=== PATIENT | female | born 1995 | race Caucasian/White ===

== ENCOUNTER 2017-05-05 22:10 | Outpatient (CLI) | payer MEDICAID, SELFPAY ==
[2017-05-05 22:35] VITALS: BMI 24.4
[2017-05-05 23:30] VITALS: RESP 18
--- NOTE | 2017-07-19 08:53 | OB.TRI.NOTE ---
History of Present Illness Reason For Visit: threatened PTL Home Medications Medication Instructions Recorded Vits [Prenatabs FA] 1 tablet PO DAILY 03/12/17 Ascorbic Acid [Vitamin C] 500 mg PO DAILY@0800 05/05/17 Cephalexin [Keflex] 500 mg PO BID #14 cap 06/14/17 Phenazopyridine HCl [Pyridium] 200 mg PO BID PRN PRN #6 tab 06/14/17 Allergies No Known Allergies Allergy (Verified 06/14/17 15:30) Physical Exam Vitals: Vital Signs Resp 18 05/05/17 23:30 Impression/Plan threatened PTL
== END 2017-05-05 23:30 | disposition home or self-care (01) ==
PROVIDERS: Visit Provider Obstetrics & Gynecology
DX: O60.00 Preterm labor without delivery, unspecified trimester (principal); Z3A.00 Weeks of gestation of pregnancy not specified
CPT/HCPCS: 59025; 59050; 99218; G0378

== ENCOUNTER 2017-05-07 00:30 | Outpatient (CLI) | payer MEDICAID, SELFPAY ==
[2017-05-07 00:50] VITALS: BMI 24.7
[2017-05-07 01:08] LABS: Bacteria 0 SEEN /hpf (None Seen); Mucous, Urine 0 SEEN /hpf (<or=2+); Red Blood Cells-Urine 0 SEEN /hpf (0-5)
[2017-05-07 01:23] LABS: Color, Urine Straw (Yellow); Glucose, Dipstick Normal (Normal); Ketone-Dipstick Negative (Negative); Leukocyte Esterase-Dipstick 25 /ul (Negative); Nitrite-Dipstick Negative (Negative); Occult Blood-Urine Negative /ul (Negative); Protein-Dipstick Negative (Negative); Urine Bilirubin Dipstick Negative (Negative); Urine Clarity Sl. Cloudy (Clear); Urine Urobilinogen Normal (Normal)
[2017-05-07 01:48] LABS: Squamous Epithelial Cells - UA 0-5 SEEN /hpf (5-10); White Blood Cells 0-5 SEEN /hpf (0-5)
[2017-05-07 02:25] VITALS: RESP 18
--- NOTE | 2017-07-24 13:12 | OB.TRI.NOTE ---
History of Present Illness Reason For Visit: R/O LABOR Home Medications Medication Instructions Recorded Vits [Prenatabs FA] 1 tablet PO DAILY 03/12/17 Ascorbic Acid [Vitamin C] 500 mg PO DAILY@0800 05/05/17 Cephalexin [Keflex] 500 mg PO BID #14 cap 06/14/17 Phenazopyridine HCl [Pyridium] 200 mg PO BID PRN PRN #6 tab 06/14/17 Allergies No Known Allergies Allergy (Verified 06/14/17 15:30) Physical Exam Vitals: Vital Signs Resp 18 05/07/17 02:25 Impression/Plan NST for threatened PTL
== END 2017-05-07 02:25 | disposition home or self-care (01) ==
PROVIDERS: Visit Provider Obstetrics & Gynecology
DX: O60.00 Preterm labor without delivery, unspecified trimester (principal); Z3A.00 Weeks of gestation of pregnancy not specified
CPT/HCPCS: 59025; 59050; 81001; 99218; G0378

== ENCOUNTER 2017-09-05 21:24 | Emergency (ER) | payer MEDICAID, SELFPAY ==
[2017-09-05 21:24] VITALS: BP 117/81; PULSE 96; RESP 18; TEMP 36.6; O2SAT 99; BMI 22.5
== END 2017-09-05 21:50 | disposition left against medical advice (07) ==
LOC: ED 21:54
PROVIDERS: Emergency Provider Emergency Medicine
DX: N61.0 Mastitis without abscess (principal)

== ENCOUNTER 2018-12-22 13:31 | Emergency (ER) | payer MEDICAID, SELFPAY ==
[2018-12-22 13:31] VITALS: BP 110/66; PULSE 79; RESP 16; TEMP 36.8; O2SAT 99; BMI 21.1
--- NOTE | 2018-12-22 13:39 | RAD_ITS ---
HISTORY:no injury. pain down left side of back and arm. pt is 5 weeks , pt was double shielded no injury. pain down left side of back and arm. pt is 5 weeks , pt was double shielded EXAMINATION/TECHNIQUE: XR Spine Cervical 2 or 3 Views: COMPARISON: None FINDINGS: VERTEBRAE: Preserved vertebral body height. No fracture. No spondylolisthesis. Straightening of the normal cervical lordosis No significant facet arthropathy. DISCS: Disc spaces are maintained. NECK SOFT TISSUES: No prevertebral soft tissue widening. LUNG APICES: Clear. RAD/Cerv Spine 2 or 3 Views IMPRESSION: No evidence of acute fracture or spondylolisthesis. Straightening of the normal cervical lordosis at 1422 Reported and signed by: Helen Krause DO Electronically Signed: Helen Krause DO at 14:21 EDT Tel , Service support ,
--- NOTE | 2018-12-22 13:40 | ED.DCSUM_ITS ---
- ER Visit Summary Date of Service: 12/22/18 Chief Complaint: Upper back pain History of Present Illness: The patient is a 23 F upper back pain. The patient is currently 5 weeks gestation. States that she woke about 10 days ago, and had pain between her shoulder blades, mostly in the left. She states it felt like a muscle pull. States it went away after 2 days. The past 4 days, does come back. She describes a burning sensation across her posterior shoulder. She states sometimes it radiates down her arm. She denies any weakness. She denies any trauma. She is taken Profen and Tylenol with little improvements. She is otherwise in her normal state of health. Physical Examination: Vital signs reviewed General: Well-nourished, well-developed Head: Normocephalic, atraumatic Eyes: Pupils equal and reactive, extraocular muscles intact Neck, supple, no lymphadenopathy, negative Spurling's. Patient does have tenderness in the left trapezius area. Heart: Regular rate and rhythm Respiratory: No distress, clear bilaterally Abdomen: Soft, nontender, nondistended, no peritoneal signs Back: Nontender Extremities: Nontender, no edema, no cords Skin: Normal color no rash Neuro: Alert and oriented, no focal or lateralizing deficits, no weakness, 5 out of 5 strength of bilateral upper extremities. 2+ reflexes triceps and brachioradialis bilaterally. Test Results: [] Emergency Department Course and Treatment: The patient has normal pulses, reflexes, and sensation. She does have some reproducible tenderness in the trapezius area and in the left paracervical area. I did obtain plain films which were unremarkable. This patient is , options are limited. She will continue Tylenol. I am going to prescribe her lidocaine patch and Flexeril as these are both category B in . She was counseled on stretching exercises. I do not suspect a dangerous process. My suspicion is that this is muscular. The patient is not tachycardic, tachypnea, and has no shortness of breath. I do feel that she is safe for outpatient therapy. Treatment Plan: [] Disposition: Discharged Impression: 1. Lower cervical pain with radiculopathy This note was generated with [employer] software. It may contain incorrect words, spelling, and punctuation that were not noted in review of the chart prior to signing ED Disposition - Plan for ED Patient: Instructions: RADICULOPATHY, Cervical Prescriptions: cycloBENZAPRine HCl [Flexeril] 10 mg PO TID PRN #20 tab PRN Reason: Muscle Spasm Prescription Printed Lidocaine [Lidoderm Patch] 1 patch TOPICAL DAILY #7 patch Prescription Printed Referrals: Care Physician,No Primary [Primary Care Provider] -
== END 2018-12-22 14:39 | disposition home or self-care (01) ==
LOC: ED 14:01
PROVIDERS: Emergency Provider Emergency Medicine
DX: O26.891 Other specified pregnancy related conditions, first trimester (principal); S16.1XXA Strain of muscle, fascia and tendon at neck level, initial encounter; M54.10 Radiculopathy, site unspecified; X58.XXXA Exposure to other specified factors, initial encounter; Y93.9 Activity, unspecified; Y92.9 Unspecified place or not applicable; Y99.9 Unspecified external cause status; Z3A.01 Less than 8 weeks gestation of pregnancy
CPT/HCPCS: 72040; 99282

== ENCOUNTER 2019-03-20 10:15 | Emergency (ER) | payer MEDICAID, SELFPAY ==
[2019-03-20 10:16] VITALS: BP 120/68; PULSE 120; RESP 18; TEMP 37; O2SAT 100; BMI 23.3
--- NOTE | 2019-03-20 10:36 | ED.DCSUM_ITS ---
- ER Visit Summary Date of Service: 03/20/19 Chief Complaint: Sore throat History of Present Illness: The patient is a 23 F with a sore throat. Gradual onset over several days. She went to an urgent care and her strep test was negative. She was diagnosed with viral pharyngitis. She said her symptoms are worsening. Her pain is worse on the right compared to the left. She noticed exudates. No other significant issues. Pain with swallowing. No change in voice or trouble breathing. Physical Examination: Afebrile and vital signs unremarkable except heart rate is 120. The patient is tearful and appears uncomfortable. Normal voice. Neck shows good range of motion. No lymphadenopathy. HEENT exam unremarkable except for 1+ tonsil on the left and 2+ tonsil on the right. Exudates noted. Airway intact. Uvula midline. Neck shows good range of motion with no meningeal s igns. Overlying skin is normal. Heart and lungs unremarkable. Patient has normal cranial nerves grossly. She is tearful and appears uncomfortable. Test Results: None performed. Emergency Department Course and Treatment: I considered strep, and advised that the testing could be falsely negative. I also considered mono and other causes of tonsillitis. Given that she is worsening, will treat. Will treat with Decadron and Augmentin. Patient declined CT. I feel this is reasonable. I discussed early abscess formation. I advised that she could require imaging or even hospitalization. If the meds are not working over the next 24 hours, she should return. If she has trouble breathing or noticed increasing swelling, she will return right away. She will also return for any other new or worsening issues. Treatment Plan: As above Disposition: Discharge Impression: 1. Tonsillitis This note was generated with [employer] software. It may contain incorrect words, spelling, and punctuation that were not noted in review of the chart prior to signing ED Disposition - Plan for ED Patient: Referrals: Care Physician,No Primary [Primary Care Provider] -
--- NOTE | 2019-03-20 10:39 | ED.DEP ---
ED Disposition - Plan for ED Patient: Instructions: ED Tonsillitis Prescriptions: Amox/Clavulanate Tablet [Augmentin Tablet] 875 mg PO Q12H #20 tab Prescription Printed Referrals: Devyn Taylor DO [NON CLINICAL AFFILIATE] - Vika Dick [NON-STAFF] -
[2019-03-20] MEDS: Amox/Clavulanate 875 MG Tablet PO (10:43)
[2019-03-20] MEDS: dexAMETHasone 10 MG/ML Vial PO.IVFORM (10:43)
== END 2019-03-20 11:00 | disposition home or self-care (01) ==
PROVIDERS: Emergency Provider Emergency Medicine
DX: J03.90 Acute tonsillitis, unspecified (principal); Z72.0 Tobacco use
CPT/HCPCS: 99282

== ENCOUNTER 2020-06-07 07:03 | Inpatient (IN) | payer BC, SELFPAY ==
[2020-06-07] VITALS (41 sets, daily range): BP systolic 88–135; BP diastolic 53–93; PULSE 68–110; RESP 16; TEMP 36.1–37.4; O2SAT 97–100; BMI 28.9
[2020-06-07] MEDS: Lactated Ringers 1,000 ML 50 ML IV (07:45)
[2020-06-07] MEDS: Oxytocin 30 units/NS 500 ml 30 UNITS/500 ML IV.SOLN IV (07:57)
[2020-06-07 07:58] LABS: Absolute Lymphocyte Count 2.27 X10^3/uL (0.83-4.51); Absolute Neutrophil Count 6.6 X10^3/uL (2.0-7.7); Basophil# 0.05 X10^3/uL; Basophil% 0.5 % (0-1); Eosinophil# 0.27 X10^3/uL; Eosinophils% 2.6 % (0-5); Hematocrit 36.8 % (37-47); Hemoglobin 12.3 g/dL (12.0-15.0); Lymphocyte # 2.27 X10^3/ul (4.0); Lymphocyte % 21.8 % (19-41); Mean Corp Hgb Conc 33.4 g/dL (32-36); Mean Corpuscular Hgb 28.2 pg (27.0-32.0); Mean Corpuscular Volume 84.4 fL (81-99); Mean Platelet Vol. 9.8 fl (6.2-12.0); Monocyte# 1.17 X10^3/uL; Monocyte% 11.2 % (0-10); NRBC Flagged by Analyzer 0 % (0-5); Neutrophil % 63.2 % (47-70); Platelet Count 358 K/mm3 (150-450); RBC Distribution Width CV 13.2 % (11.6-14.6); RBC Distribution Width SD 41.1 fl (35.1-43.9); Red Blood Count 4.36 M/mm3 (4.2-5.4); White Blood Count 10.4 K/mm3 (4.4-11.0)
--- NOTE | 2020-06-07 08:15 | PCM.HP.OB ---
- Problem List (1) 40 weeks gestation of Status: Acute (2) Elective induction of labor planned Status: Acute History Date of Admission: 06/07/20 Final DERIK: 06/07/20 Gestational age: 40 Weeks and 0 Days History of this : This is a 24 year-old, G 2, P 1, at 40 weeks gestational age who presents for scheduled IOL for an elective induction. Prior baby was 9 lbs 5 oz at . No shoulder dystocia noted in report. No perineal lacerations, but she had several vaginal wall lacerations at that time. 36 week growth US in this : EFW 6 lb 6 oz at 52%. Medical History: Medical History (Last Updated 06/07/20 @ 08:[address] Erika Flores DO) History of abnormal cervical Pap smear Z87.42 History of asthma Z87.09 History of depression Z87.59, Z86.59 Surgical History: Surgical History (Last Updated 06/07/20 @ 08:[address] Erika Flores DO) History of nasal surgery Z98.890 Allergies fluconazole [From Diflucan] Allergy (Verified 03/20/19 10:19) Hives Home Medications: Home Medications Amox/Clavulanate Tablet [Augmentin Tablet] 875 mg PO Q12H #20 tab 03/20/19 Cetirizine HCl [Zyrtec] 10 mg PO DAILY 03/20/19 Desogestrel-Ethinyl Estradiol [Enskyce 28 Tablet] 1 tab PO DAILY 03/20/19 Fluticasone 0.05% [Flonase Nasal [place]] 1 spray NASAL DAILY PRN 03/20/19 Smoking Status: Current some day smoker Number of Fetus(es): 1 NST - FHR Rate Baby A FHR Category:: Category I History Past Pregnancies: Past Pregnancies Delivery Date Name GA/ Weeks Outcome Route Wt Infant Sex Labor Length Anesthesia Delivery Location Provider FOB Expected Infant Delivery Method: Spontaneous Vaginal Physical Exam Vitals: Vital Signs Temp Pulse BP Pulse Ox 97.3 F L 96 124/63 H 98 06/07/20 08:01 06/07/20 08:01 06/07/20 08:01 06/07/20 08:00 General: Alert, No apparent distress HEENT: Atraumatic Abdomen: Gravid Extremities:: No edema Neurological: Neuro grossly intact 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 - Routine intrapartum care - Pitocin per protocol - Epidural for pain control - Pelvis proven to 9 lb 5 oz. EFW expected to be less than 4,500 grams based on 36 week growth US. Anticipate vaginal delivery - GBS negative - Covid negative
[2020-06-07] MEDS: Lactated Ringers 500 ML 999 ML IV ×2 (09:58→11:47)
[2020-06-07] MEDS: fentaNYL 100 MCG/2 ML Ampul IV (10:08)
[2020-06-07] MEDS: fentaNYL-bupivacaine (epidural) 100 ML BAG EPIDURAL (10:59)
--- NOTE | 2020-06-07 12:23 | PCM.PN.BLA ---
Progress Note Comfortable with epidural. Cvx 4/80/-1, head well applied. AROM performed for clear fluid. IUPC placed. Category 1 tracing. Cont pit gtt. STROKE Vital Signs/Narrative: Vital Signs Temp Pulse BP Pulse Ox 06/07/20 11:57 82 106/64 06/07/20 11:43 101 H 88/53 L 06/07/20 11:42 109 H 95/53 L 98 06/07/20 11:25 98 107/55 L 06/07/20 11:23 98.4 F 06/07/20 11:20 92 99 06/07/20 11:19 86 102/57 L 06/07/20 11:18 99 06/07/20 11:15 86 99 06/07/20 11:14 90 101/55 L 06/07/20 11:10 102 H 97 06/07/20 11:09 84 100/54 L 06/07/20 11:05 92 99 06/07/20 11:04 100 110/56 L 06/07/20 11:00 93 99 06/07/20 10:59 88 114/59 L 06/07/20 10:54 100 131/63 H 100 06/07/20 10:50 110 H 128/93 H 06/07/20 10:39 82 135/89 H 06/07/20 10:36 68 120/73 06/07/20 10:30 98.0 F 06/07/20 10:24 71 124/65 H 06/07/20 09:13 73 114/66 06/07/20 09:12 98.2 F 77 99
[2020-06-07] MEDS: Oxytocin 30 units/NS 500 ml 30 UNITS/500 ML IV.SOLN 334 UNITS IV (14:18)
--- NOTE | 2020-06-07 14:27 | PCM.OPRPT ---
Problem List (1) 40 weeks gestation of Status: Acute (2) Elective induction of labor planned Status: Acute Report of Operation Date of Procedure: 06/07/20 Pre-Operative Diagnosis: 40 week gestation, elective induction of labor planned Post-Operative Diagnosis: As above Surgery/Procedure Performed:: Description of Surgical Findings:: Patient complete and pushing. Head delivered in occiput anterior position over an intact perineum. Anterior shoulder, posterior shoulder, followed by body of infant was delivered without any force or delay. A vigorous viable male infant was placed on maternal abdomen. The cord was clamped and cut after a 60 second delay by the father of the baby. Placenta was delivered with fundal massage. The placenta was noted to be normal-appearing and intact with a three-vessel cord. Uterus was explored x1. Fundus was firm and bleeding hemostatic. A first-degree vaginal laceration was repaired with 0 Vicryl in usual fashion. A vaginal sweep was performed. Sponge and needle counts were correct. Type of Anesthesia:: Epidural Special Medications: None Specimen's removed: Placenta Drains: Baer Estimated Blood Loss (mL): 100 Description of Procedure: As above Grafts/Implants Used: None - Complications None - Admit VTE Documentation VTE Present on Admission: No VTE Mechan Device Prophylaxis: None VTE Pharm Prophylaxis ordered?: No Vaginal Delivery Maternal Presentation: Elective Induction Method of Induction: Pitocin, Amniotomy Amniotic Membrane Rupture Type: Artificial Amniotic Fluid Description: Clear Final DERIK: 06/07/20 Gestational age: 40 Weeks and 0 Days Surgery/ Procedure Performed: Spontaneous Vaginal Delivery Type of Anesthesia: Epidural Presentation: Vertex Placental Delivery Description: Expressed Cord Vessel Description: 3 Vessels Cord Entanglement: None A gender: Male (1 minute): 8 (5 minute): 9 Episiotomy Description: None Laceration: Vaginal Extension/lac Medications given after delivery: IV Pitocin Complications: None
[2020-06-07] MEDS: Acetaminophen 500 MG Tablet 1000 MG PO (17:42)
--- NOTE | 2020-06-07 17:46 | NURSING ---
Missed hat with void
[2020-06-07] MEDS: Ibuprofen 600 MG Tablet PO (19:35)
[2020-06-07] MEDS: Senna/Docusate Sodium 1 Tablet PO (20:31)
[2020-06-08] VITALS (8 sets, daily range): BP systolic 111–118; BP diastolic 66–77; PULSE 62–96; RESP 16; TEMP 36.3–36.6
[2020-06-08] MEDS: Acetaminophen 500 MG Tablet 1000 MG PO ×2 (01:45→12:56)
[2020-06-08] MEDS: Ibuprofen 600 MG Tablet PO ×2 (01:45→14:33)
[2020-06-08] MEDS: oxyCODONE 5 MG Tablet PO (06:22)
--- NOTE | 2020-06-08 09:07 | DCINST_ITS ---
Discharge Diet: No Restrictions Discharge Activity: May Drive, May Shower May resume sexual activity in: 6 weeks Additional Instructions: If you experience any of the following, contact your healthcare provider. * Bleeding that soaks a pad every hour for 2 hours * Fever 100.4 or higher * Unrelieved incision or abdominal pain * Swelling, redness, discharge or bleeding from your incision or episiotomy site * Your incision begins to separate * Problems urinating (including inability to urinate or burning while urinating). * Visual changes * Severe headache * Flu-like symptoms * Pain or redness in one of both of your breasts * Pain, warmth, tenderness or swelling in your legs, especially the calf area * Frequent nausea and vomiting * Symptoms of depression or anxiety If you experience any of the following, call 911 or go to the nearest Emergency Room. * Chest pain * Problems breathing * Seizure activity * Partial or complete paralysis of a body part, slurred speech, weakness or drooping of the face, or a sudden inability to walk or hold your balance Allergies/Adverse Reactions: Allergies fluconazole [From Diflucan] Allergy (Verified 03/20/19 10:19) Hives Medications to take at Discharge Cetirizine HCl [Zyrtec] 10 mg PO DAILY 03/20/19 Fluticasone 0.05% [Flonase Nasal [place]] 1 spray NASAL DAILY PRN 03/20/19 Pepcid 20 mg PO BID 06/07/20 Caplet 1 tab PO DAILY 06/07/20 Acetaminophen [Tylenol] 1,000 mg PO Q8H PRN PRN tablet 06/08/20 Ibuprofen [Motrin] 600 mg PO Q6H PRN PRN tablet 06/08/20 Primary Care Physician: Care Physician,No Primary [Primary Care Provider] - Test Results: Test results from this visit will be discussed in further detail at your follow- up appointment, if applicable.
--- NOTE | 2020-06-08 09:07 | PCM.DCVAG ---
Discharge Diet: No Restrictions Discharge Activity: May Drive, May Shower May resume sexual activity in: 6 weeks Additional Instructions: If you experience any of the following, contact your healthcare provider. Bleeding that soaks a pad every hour for 2 hours Fever 100.4 or higher Unrelieved incision or abdominal pain Swelling, redness, discharge or bleeding from your incision or episiotomy site Your incision begins to separate Problems urinating (including inability to urinate or burning while urinating). Visual changes Severe headache Flu-like symptoms Pain or redness in one of both of your breasts Pain, warmth, tenderness or swelling in your legs, especially the calf area Frequent nausea and vomiting Symptoms of depression or anxiety If you experience any of the following, call 911 or go to the nearest Emergency Room. Chest pain Problems breathing Seizure activity Partial or complete paralysis of a body part, slurred speech, weakness or drooping of the face, or a sudden inability to walk or hold your balance Allergies/Adverse Reactions: Allergies fluconazole [From Diflucan] Allergy (Verified 03/20/19 10:19) Hives Medications to take at Discharge Cetirizine HCl [Zyrtec] 10 mg PO DAILY 03/20/19 Fluticasone 0.05% [Flonase Nasal [place]] 1 spray NASAL DAILY PRN 03/20/19 Pepcid 20 mg PO BID 06/07/20 Caplet 1 tab PO DAILY 06/07/20 Acetaminophen [Tylenol] 1,000 mg PO Q8H PRN PRN tablet 06/08/20 Ibuprofen [Motrin] 600 mg PO Q6H PRN PRN tablet 06/08/20 Primary Care Physician: Care Physician,No Primary [Primary Care Provider] - Test Results: Test results from this visit will be discussed in further detail at your follow-up appointment, if applicable.
--- NOTE | 2020-06-08 09:07 | PCM.PN.OB ---
Patient Problems: Active and Suspected Problems (Last Updated 06/07/20 @ 08:[address] Erika Flores, DO) 40 weeks gestation of (Acute) Elective induction of labor planned (Acute) Subjective: Denies complaints - Physical Exam Vitals/I&O's: Vital Signs Temp Pulse Resp BP Pulse Ox 97.9 F 80 16 111/77 98 06/08/20 07:48 06/08/20 07:49 06/08/20 07:48 06/08/20 07:49 06/07/20 17:55 Oxygen Delivery Method Room Air Weight: 184 lb 8 oz Body Mass Index (BMI) 28.9 Intake and Output for Last 24 Hours 06/06/20 06/07/20 06/08/20 23:59 23:59 23:59 Intake Total 3078.17 / 3078.17 Output Total 1700 / 1700 Balance 1378.17 / 1378.17 General: Alert, Oriented x3 Abdomen: Soft, Non Tender, Non-Distended - ff mid & below umb Extremities: No Calf Tenderness Neurological: Cranial nerves II-XII grossly intact Laboratory Results 06/07/20 07:45: Blood Type B POSITIVE, Antibody Screen NEGATIVE Current Medications Acetaminophen (Acetaminophen 500 Mg Tablet) 1,000 mg PO Q8H PRN PRN PRN Reason: Pain Score 1-3 Last Admin: 06/08/20 01:45 Dose: 1,000 mg Documented by: Bisacodyl (Bisacodyl 10 Mg Suppository) 10 mg RECTAL UD PRN PRN Reason: If no BM Dibucaine (Dibucaine 30 Gm Tube) 1 applic TOPICAL TID PRN PRN; Protocol PRN Reason: Discomfort Hydrocortisone (Hydrocortisone 2.5% Crm) 1 applic TOPICAL TID PRN PRN; Protocol PRN Reason: Discomfort Ibuprofen (Ibuprofen 600 Mg Tablet) 600 mg PO Q6H PRN PRN PRN Reason: Pain Score 1-3 Last Admin: 06/08/20 01:45 Dose: 600 mg Documented by: Methylergonovine Maleate (Methylergonovine 0.2 Mg/Ml Ampul) 0.2 mg IM X1 PRN PRN Reason: Excess bleeding/uterine atony Ondansetron HCl (Ondansetron 4 Mg/2 Ml Vial) 4 mg IV Q4H PRN PRN PRN Reason: Nausea Oxycodone HCl (Oxycodone 5 Mg Tablet) 5 mg PO Q4H PRN PRN PRN Reason: Pain Score 6-10 Last Admin: 06/08/20 06:22 Dose: 5 mg Documented by: Senna/Docusate Sodium (Senna/Docusate Sodium 1 Tablet) 1 - 2 tablet PO DAILY PRN PRN PRN Reason: Constipation Last Admin: 06/07/20 20:31 Dose: 2 tablet Documented by: Simethicone (Simethicone 80 Mg Tablet) 80 mg PO PCHS PRN PRN Reason: Indigestion/Stomach pain Last Admin: 06/08/20 00:35 Dose: 80 mg Documented by: Sodium Chloride (0.9% Saline Lock 10 Ml Syringe) 5 - 15 ml IV UD PRN PRN Reason: SALINE FLUSH Medical Necessity - Tobacco Use Smoking Status: Former smoker Assessment/Plan All Active Problems (Last Updated 06/07/20 @ 08:[address] Erika Flores, DO) 40 weeks gestation of (Acute) Elective induction of labor planned (Acute) PPD#1 D/c home later today per patient request
[2020-06-08] MEDS: Senna/Docusate Sodium 1 Tablet PO (15:15)
== END 2020-06-08 16:55 | disposition home or self-care (01) | DRG 807 ==
PROVIDERS: Admitting Provider Obstetrics & Gynecology; Referring Provider Obstetrics & Gynecology; Visit Provider Obstetrics & Gynecology
DX: O99.334 Smoking (tobacco) complicating childbirth (principal); F17.200 Nicotine dependence, unspecified, uncomplicated; O70.0 First degree perineal laceration during delivery; Z3A.40 40 weeks gestation of pregnancy; Z37.0 Single live birth
CPT/HCPCS: 59025; 59050; 85025; 86850; 86900; 86901; 99218; J7120; G0378

== ENCOUNTER 2020-12-29 09:53 | Outpatient (CLI) | payer MEDICAID, SELFPAY ==
[2020-06-07 07:29] VITALS: BMI 28.9
== END 2020-12-29 10:30 | disposition home or self-care (01) ==
LOC: WPOUT 09:54 → WP 09:56
PROVIDERS: Referring Provider Obstetrics & Gynecology; Visit Provider Obstetrics & Gynecology
DX: Z39.1 Encounter for care and examination of lactating mother (principal)
CPT/HCPCS: 96158; 96159

== ENCOUNTER → 2023-08-08 | Outpatient (CLI) | payer OTHER, SELFPAY ==
--- OUTSIDE RECORDS SUMMARY | 2023-08-08 09:58 | XMS RPT_ITS | CCD ---
Author Name Unknown Address [id number] [place] [address] Organization [facility] Care Team Providers Care Digital Production Artist Name Role Phone Crow, Milka Unavailable Unavailable Crow, Milka Unavailable Unavailable Crow, Milka Unavailable Unavailable Crow, Milka A Unavailable Unavailable *SELF, REFERRED Unavailable Unavailable Clinton Evans Unavailable Unavailabl e Crow, Milka A Unavailable Unavailable Crow, Milka A Unavailable Unavailable Clinton Evans Unavailable Unavailabl e Crow, Milka A Unavailable Unavailable Crow, Milka A Unavailable Unavailable Clinton Evans Unavailable Unavailabl e Crow, Milka A Unavailable Unavailable Crow, Milka A Unavailable Unavailable Clinton Evans Unavailable Unavailabl e Crow, Milka A Unavailable Unavailable Crow, Milka A Unavailable Unavailable Clintno Evans Unavailable Unavailabl e Crow, Milka A Unavailable Unavailable Crow, Milka A Unavailable Unavailable Clinton Evans Unavailable Unavailabl e Crow, Milka A Unavailable Unavailable Crow, Milka A Unavailable Unavailable Clinton Evans Unavailable Unavailabl e Crow, Milka A Unavailable Unavailable Crow, Milka A Unavailable Unavailable Clinton Evans Unavailable Unavailabl e Crow, Milka A Unavailable Unavailable Crow, Milka A Unavailable Unavailable Clinton Evans Unavailable Unavailabl e Crow, Milka A Unavailable Unavailable Crow, Milka A Unavailable Unavailable Clinton Evans Unavailable Unavailabl e Crow, Milka A Unavailable Unavailable Clinton Evans Unavailable Unavailabl e Crow, Milka A Unavailable Unavailable Crow, Milka A Unavailable Unavailable Clinton Evans Unavailable Unavailabl e Crow, Milka A Unavailable Unavailable Clinton Evans Unavailable Unavailabl e Crow, Milka Unavailable Unavailable Clinton Evans Unavailable Unavailable Clinton Evans Unavailable Unavailable Crow Milka A Unavailable Unavailable (Historical), Nopcp Unavailable Unavailable (Historical), Nopcp Unavailable Unavailable (Historical), Nopcp Unavailable Unavailable MARIA KLEIN Referring Unavailable YASMEEN ESQUIVEL Attending Unavail able MARIA KLEIN Attending Unavailable GRANT DRAPER Primary Care Unavailable YANNA ARENAS Attending Unavailable YASMEEN ESQUIVEL Referring Unavail able YASMEEN ESQUIVEL Attending Unavail able MARIA KLEIN Attending Unavailable Allergies Allergy Classification Reported Allergen(s) Allergy Type Date of Onset Reaction(s) Facility (14 sources) Fluconazole; Translations: [FLUCONAZOLE] Drug Allergy 09-10-2018 Other: See Comments [facility] Medications Current Medications Medication Drug Class(es) Dates Sig (Normalized) Sig (Original) amoxicillin 875 mg / clavulanate 125 mg oral tablet (1 source) Penicillin-class Antibacterial Start: 11-01-2021 End: 11-08-2021 take 1 tablet by mouth twice daily amoxicillin-clav ulanic acid (AUGMENTIN) 875-125 mg per tablet Take 1 tablet by mouth twice daily for 7 days. 14 tablet 0 11/01/2021 11/08/2021 Active Completed/Discontinued Medications Medication Drug Class(es) Dates Sig (Normalized) Sig (Original) ascorbic acid 1000 mg oral tablet (12 sources) Vitamin C take 1 tablet by sarah th once daily Ascorbic Acid 1,000 mg tablet Take 1,000 mg by mouth once daily. 0 Active Problems Active Problems Problem Classification Problem Date Documented Da te Episodic/Chronic Abdominal pain (1 source) Abdominal pain in ; Translations: [Abdominal pain in , antepartum] Episodic Anxiety disorders (2 sources) Chronic post-traumatic stress disorder; Translations: [Post-traumatic stress disorder, chronic] Chronic Asthma (12 sources) Mild intermittent asthma; Translations: [Mild intermittent asthma, uncomplicated] Onset: 10-30-2019 10-30-2019 Chronic Bacterial infection; unspecified site (1 source) Bacterial upper respiratory infection; Translations: [Bacterial URI] Episodic Genitourinary symptoms and ill-defined conditions (1 source) Dysuria; Translations: [Dysuria] Episodic Inflammatory diseases of female pelvic organs (1 source) Acute vaginitis; Translations: [Acute vaginitis] Episodic Malaise and fatigue (1 source) Fatigue; Translations: [Fatigue] Episodic Menstrual disorders (1 source) Amenorrhea; Translations: [Absent menses] Chronic Mood disorders (2 sources) Bipolar II disorder; Translations: [Bipolar II disorder] Chronic Mood disorders (1 source) Disturbance in mood; Translations: [Emotional lability] Episodic Mycoses (1 source) Candidiasis of vagina; Translations: [Yeast infection of the vagina] Episodic Nausea and vomiting (1 source) Nausea; Translations: [Nausea] Episodic Nonmalignant breast conditions (2 sources) Acute mastitis; Translations: [Mastitis without abscess] Episodic Normal and/or delivery (2 sources) Encounter for routine follow-up; Translations: [ care status] Onset: 08-22-2017 Episodic Nutritional deficiencies (1 source) Vitamin D deficiency; Translations: [Vitamin D deficiency, unspecified] Chronic Other aftercare (3 sources) Patient encounter status; Translations: [Other fdc (current) drug therapy] Episodic Other female genital disorders (1 source) History of abnormal cervical Papanicolaou smear ; Translations: [History of abnormal cervical Pap smear] Episodic Other gastrointestinal disorders (1 source) Constipation; Translations: [Constipation] Episodic Other screening for suspected conditions (not mental disorders or infectious disease) (2 sources) care status; Translations: [ care, subsequent in third trimester] Episodic Other skin disorders (1 source) Cystic acne; Translations: [Acne vulgaris] Episodic Other upper respiratory infections (1 source) Sinusitis; Translations: [Sinus infection] Episodic Otitis media and related conditions (1 source) Acute right otitis media; Translations: [Otitis media, unspecified, right ear] Episodic Unclassified (1 source) Encounter for routine follow-up / Z39.2(ICD-10) Onset: 08-22-2017 Unclassified (1 source) Encounter for screening for human papillomavirus (HPV) / Z11.51(ICD-10) Onset: 08-22-2017 Unclassified (1 source) Encounter for suspected anomaly ruled out / Z03.73(ICD-10) Onset: 02-23-2017 Unclassified (1 source) Encounter for screening of mother / Z36(ICD-10) Onset: 2016 Urinary tract infections (1 source) Urinary tract infectious disease; Translations: [Urinary tract infection] Episodic Past or Other Problems Problem Classification Problem Date Documented Date Episodic/Chronic Contraceptive and procreative management (2 sources) Intrauterine contraceptive device in situ; Translations: [Encounter for routine checking of intrauterine contraceptive device] Onset: 11-02-2022 Episodic Immunizations and screening for infectious disease (12 sources) Exposure to sexually transmissible disorder; Translations: [Contact with and (suspected) exposure to infections with a predominantly sexual mode of transmission] Onset: 10-30-2019 12-02-2019 Episodic Other aftercare (1 source) Other intermediate accountant (current) drug therapy; Translations: [Encounter for long-term (current) use of medications] Onset: 08-12-2022 Episodic Other complications of (12 sources) History of delivery of macrosomal infant; Translations: [Supervision of with other poor reproductive or obstetric history, unspecified trimester] Onset: 10-23-2019 04-29-2020 Episodic Other complications of (12 sources) Nausea and vomiting; Translations: [Vomiting of , unspecified] Onset: 10-23-2019 10-30-2019 Episodic Screening and history of mental health and substance abuse codes (12 sources) H/O: depression; Translations: [Personal history of other mental and behavioral disorders] Onset: 10-23-2019 10-30-2019 Episodic Unclassified (1 source) Encounter for screening for human papillomavirus (HPV); Translations: [Encounter for screening for human papillomavirus (HPV)] Onset: 08-22-2017 Unclassified (3 sources) Patient encounter status; Translations: [Encounter for initial prescription of intrauterine contraceptive device (IUD)] Results Test Name Value Interpretation Reference Range Facil ity Vital Signs Date Time Vital Sign Value Performing Clinician Layla strong 11-02-2022 15:28-0400 Body weight 79.38 kg Yanna Arenas APRN.CNP Work Phone: [facility] 11-02-2022 15:28-0400 Diastolic blood pressure 66 mm[Hg] Yanna Arenas APRN.CNP Work Phone: [facility] 11-02-2022 15:28-0400 Systolic blood pressure 92 mm[Hg] Yanna Arenas APRN.CNP Work Phone: [facility] 09-19-2022 15:54-0400 Body weight 80.11 kg Yasmeen Hernandez MD Work Phone: [facility] 09-19-2022 15:54-0400 Diastolic blood pressure 72 mm[Hg] Yasmeen Hernandez MD Work Phone: [facility] 09-19-2022 15:54-0400 Systolic blood pressure 120 mm[Hg] Yasmeen Hernandez MD Work Phone: [facility] 03-10-2022 14:39-0400 Body height 170.2 cm Maricarmen Plotts INDUCTION MACHINE OPERATOR.CNM Work Phone: [facility] 03-10-2022 14:39-0400 Body weight 72.12 kg Maricarmen Plotts INDUCTION MACHINE OPERATOR.CNM Work Phone: [facility] 03-10-2022 14:39-0400 Diastolic blood pressure 68 mm[Hg] Maricarmen Plotts INDUCTION MACHINE OPERATOR.CNM Work Phone: [facility] 03-10-2022 14:39-0400 Systolic blood pressure 110 mm[Hg] Maricarmen Plotts INDUCTION MACHINE OPERATOR.CNM Work Phone: [facility] 11-01-2021 09:56-0400 Body temperature 98.2 [degF] Mer Pendlebury INDUCTION MACHINE OPERATOR.RESEARCH NURSE PRACTITIONER Work Phone: [facility] 11-01-2021 09:56-0400 Body weight 70.31 kg Mer Pendlemonty INDUCTION MACHINE OPERATOR.RESEARCH NURSE PRACTITIONER Work Phone: [facility] 11-01-2021 09:56-0400 Diastolic blood pressure 68 mm[Hg] Mer Pendlebury INDUCTION MACHINE OPERATOR.RESEARCH NURSE PRACTITIONER Work Phone: [facility] 11-01-2021 09:56-0400 Heart rate 100 /min Mer Pendlebury INDUCTION MACHINE OPERATOR.RESEARCH NURSE PRACTITIONER Work Phone: [facility] 11-01-2021 09:56-0400 Respiratory rate 16 /min Mer Pendlebury INDUCTION MACHINE OPERATOR.RESEARCH NURSE PRACTITIONER Work Phone: [facility] 11-01-2021 09:56-0400 SaO2% (BldA) [Mass fraction] 99 % Mer Mackenzie APRN.DASHAWN Work Phone: [facility] 11-01-2021 09:56-0400 Systolic blood pressure 124 mm[Hg] Mer Mackenzie APRN.CNP Work Phone: [facility] Encounters Encounter Date Encounter Type Care Provider Facility Start: 07-10-2023 End: 07-10-2023 ambulatory GRANT DRAPER Facility:[facility] Start: 04-06-2023 Emergency department patient visit Facility:[facility] Start: 12-02-2022 Emergency department patient visit Facility:[facility] Start: 11-02-2022 End: 11-03-2022 ambulatory YANNA ARENAS Facility:[facility] Start: 11-02-2022 End: 11-02-2022 Patient encounter procedure Yanna Arenas APRN.CNP Work Phone: OB/Gynecology Procedures Date Procedure Procedure Detail Performing Clinician Start: 09-19-2022 Urine test visual color cmprsn hyun Hernandez MD Work Phone: Plan of Treatment Date Care Activity Detail Author Start: 03-15-2030 Urine microalbumin profile DTAP,TDAP,TD (2 - Td or Tdap) [facility] Start: 02-23-2023 Influenza vaccination INFLUENZ A (Season Ended) [facility] Start: 11-06-2022 End: 01-06-2023 25-hydroxyvitamin D3 [Mass/volume] in Serum or Plasma VITAMIN D 25 HYDROXY Lab Routine Vitamin D deficiency Expected: 11/06/2022 (Approximate), Expires: 01/06/2023 [facility] Work Phone: Immunizations Immunization Date Immunization Notes Care Provider Rossy lopez 03-15-2020 tetanus toxoid, redu karen diphtheria toxoid, and acellular pertussis vaccine, adsorbed Yasmeen Hernandez MD Work Phone: [facility] 05-27-2012 influenza, seasonal, injectable Milka He [address] Work Phone: 03-17-2009 influenza, seasonal, injectable Milka Maria Tracey OBIDALIAFernanda [address] Work Phone: Payers Date Payer Category Payer Unknown [id number] 2022 Unknown [id number] 2020 Medicaid [employer] [place] [id number] 2020-Present [phone] [address] [address] [place] [address] Medicaid [id number] 2020 Medicaid [id number] Social History Date Type Detail Facility Start: 12-19-2018 End: 09-19-2022 Tobacco smoking status NHIS Ex-smoker [facility] Work Phone: End: 03-21-2019 History of tobacco use Current smoker [facility] Work Phone: End: 03-21-2019 History of tobacco use Cigarette Smoker [facility] Work Phone: Start: 12-19-2018 End: 09-19-2022 Tobacco use and exposure Smokeless tobacco non-user [facility] Work Phone: Start: 05-10-2021 End: 11-02-2022 Alcohol intake Current non-drinker of alcohol (finding) [facility] Start: 10-23-2019 History SDOH Financial 5 [facility] Start: 10-23-2019 History SDOH Food Worry 1 [facility] Start: 10-23-2019 History SDOH Transport Med 2 [facility] Start: 10-23-2019 Education 21 [facility] Start: 1995 Sex Assigned At Not on file [facility] Start: 10-22-2021 End: 03-10-2022 Exposure to SARS-CoV-2 (event) Not sure [facility] Work Phone: Start: 1995 Sex Assigned At Female [facility] NEGATED: Highlighted row - [facility] [address] Work Phone: Functional Status Date Assessment Result Facility NEGATED: Highlighted row Functional performance Functional status health issues are not documented [place] [address] Work Phone: Mental Status Date Assessment Result Facility NEGATED: Highlighted row Cognitive function [Interpretation] Cognitive status health issues are not documented Disease [facility]ait Work Phone: Clinical Notes 11-01-2021 to 07-10-2023 Yanna Arenas INDUCTION MACHINE OPERATOR.RESEARCH NURSE PRACTITIONER - 11/02/2022 3:25 PM EDTDeidre Bebeto Hernandez MD - 09/19/2022 3:44 PM EDTPatient InstructionsPatient InstructionsMaria Klein INDUCTION MACHINE OPERATOR.RESEARCH NURSE PRACTITIONER - 09/08/2022 2:59 PM EDT Note Date & Type Note Facility 07-10-2023 Note HNO ID: [id number] Author: MER MACKENZIE APRN.RESEARCH NURSE PRACTITIONER Service: ? Author Type: Nurse Practitioner Type: Progress Notes Filed: 07/10/2023 11:01 Note Text: Subjective HPI Nontoxic-appearing female presents urgent care chief complaint right ear pain. Duration of symptoms 2 days. Associated symptoms right ear pain. Patient states family was diagnosed with influenza B. She started feeling poorly 5 to 6 days ago. Has been fever free for greater than 24 hours. Ear pain has worsened over the last 24 hours. Presents today for evaluation. No ear trauma loss of hearing otorrhea. Hearing is slightly muffled. Has no history of ear infections. Denies any fever body aches chills productive cough chest pain shortness of breath pleuritic pain hemoptysis nausea vomiting abdominal pain change in bowel or bladder habits. Past medical history prescription medication use and allergies reviewed. .Patient presents with: Ear Pain: right x 2 days, right cheek to ear PAST MEDICAL HISTORY Diagnosis Date Abnormal Pap smear of cervix with 1st HPV Asthma fracture elbow x 2 and nose Frequent UTI as teenager-saw urologist, no issues since Mental disorder Microcytic anemia depression PAST SURGICAL HISTORY Procedure Laterality Date NASAL SINUS SURGERY HX ALLERGIES Diflucan [Fluconazole] MEDICATIONS levonorgestrel (MIRENA) 21 mcg/24 hours (8 yrs) 52 mg IUD 1 Each by INTRAUTERINE route as directed. Cetirizine 10 mg cap Take by mouth. risperiDONE (RISPERDAL) 0.5 mg tablet Take 1 tablet by mouth three times daily. cholecalciferol (VITAMIN D-3) 5,000 unit tab Take 1 tablet by mouth once daily. spironolactone (ALDACTONE) 50 mg tablet Take 1 tablet by mouth twice daily. Ascorbic Acid 1,000 mg tablet Take 1,000 mg by mouth once daily. FAMILY HISTORY Problem Relation Age of Onset other (Unknown) Father Heart Mother Obesity Mother Bipolar disorder Mother other (Palpitations) Mother other (pre diabetes) Mother other (No family hx of) Other no breast Ca, no uterine Ca, no ovarian Ca, no colon CA No Known Problems Maternal Grandfather No Known Problems Paternal Grandmother Cancer Paternal Grandfather Heart Maternal Grandmother Kidney Disease Maternal Grandmother No Known Problems Son Social History Tobacco Use Smoking status: Former Years: 3 Types: Cigarettes Quit date: 03/21/2019 Years since quittin.3 Smokeless tobacco: Never Vaping Use Vaping Use: current everyday user Substances: Nicotine, Flavoring Devices: Disposable Substance Use Topics Alcohol use: Yes Comment: social Drug use: No BP 120/76 Pulse 100 Temp 36 ?C (96.8 ?F) Resp 18 Wt 82.1 kg (181 lb) LMP 03/04/2023 (Approximate) SpO2 97% BMI 28.35 kg/m? Review of Systems Constitutional: Negative for chills, fever and malaise/fatigue. HENT: Positive for congestion, ear pain and sinus pain. Negative for ear discharge and sore throat. Eyes: Negative for blurred vision, pain, discharge and redness. Respiratory: Negative for cough, hemoptysis, sputum production, shortness of breath, wheezing and stridor. Cardiovascular: Negative for chest pain. Gastrointestinal: Negative for abdominal pain, diarrhea, nausea and vomiting. Musculoskeletal: Negative for myalgias. Skin: Negative for itching and rash. Neurological: Negative for dizziness and headaches. Objective Physical Exam Constitutional: General: She is not in acute distress. Appearance: She is not diaphoretic. HENT: Head: Normocephalic. Jaw: No trismus, tenderness, swelling or pain on movement. Right Ear: Tympanic membrane, ear canal and external ear normal. Left Ear: Tympanic membrane, ear canal and external ear normal. Ears: Comments: Clear fluid noted behind right TM. Mildly bulging. No erythematous or purulent fluid noted. No otorrhea. Nose: Congestion present. Mouth/Throat: Mouth: Mucous membranes are moist. Pharynx: Oropharynx is clear. Uvula midline. No pharyngeal swelling, oropharyngeal exudate, posterior oropharyngeal erythema or uvula swelling. Eyes: Conjunctiva/sclera: Conjunctivae normal. Pupils: Pupils are equal, round, and reactive to light. Cardiovascular: Rate and Rhythm: Normal rate and regular rhythm. Heart sounds: Normal heart sounds. Pulmonary: Effort: Pulmonary effort is normal. No tachypnea, accessory muscle usage or respiratory distress. Breath sounds: Normal breath sounds. No stridor. No wheezing, rhonchi or rales. Abdominal: General: There is no distension. Palpations: Abdomen is soft. Tenderness: There is no abdominal tenderness. There is no guarding or rebound. Musculoskeletal: Cervical back: Normal range of motion and neck supple. No edema, erythema, rigidity or tenderness. No pain with movement. Normal range of motion. Lymphadenopathy: Cervical: No cervical adenopathy. Skin: General: Skin is warm and dry. Neurological: Menta (more content not included)... [facility] 04-07-2023 Note HNO ID: [id number] Author: Note, Interface Service: ? Author Type: ? Type: Progress Notes Filed: 04/07/2023 5:28 AM Note Text: Epic Scheduled Downtime: 04/07/2023 1:00:00 AM to 04/07/2023 1:28:00 AM [facility] 11-02-2022 Note HNO ID: [id number] Author: Yanna Arenas APRN.RESEARCH NURSE PRACTITIONER Service: ? Author Type: Nurse Practitioner Type: Progress Notes Filed: 11/02/2022 3:55 PM Note Text: Jazz Sullivan presents today for IUD check. She had a Mirena placed on 09/19/2022. She has had no complications since placement. Is having some cramping with this menses. REVIEW OF SYSTEMS: No fever, chills or pain PHYSICAL EXAMINATION: BP 92/66 Wt 175 lb (79.4kg) LMP 10/27/2022 ABDOMEN:soft and non-tender EXTERNAL GENITALIA: Normal genitalia and Bartholins, Urethra, Sken'e normal CERVIX: smooth, no lesions. IUD strings visible 2 cm UTERUS: normal size ADNEXA: negative for tenderness or masses IMPRESSION/PLAN: IUD correctly positioned.Discussed checking strings if desired. Follow up for annual exam or sooner if needed. Yanna Arenas APRN.CNP I spent a total of 20 minutes on the date of the service which included preparing to see the patient, [id number] patient care, completing clinical documentation, obtaining and/or reviewing separately obtained history, performing a medically appropriate examination, and counseling and educating the patient/family/caregiver. [facility] 11-02-2022 History of Presen t illness Narrative Jazz Sullivan presents today for IUD check. She had a Mirena placed on 09/19/2022. She has had no complications since placement. Is having some cramping with this menses. REVIEW OF SYSTEMS: No fever, chills or pain PHYSICAL EXAMINATION: BP 92/66 Wt 175 lb (79.4kg) LMP 10/27/2022 ABDOMEN:soft and non-tender EXTERNAL GENITALIA: Normal genitalia and Bartholins, Urethra, Sken'e normal CERVIX: smooth, no lesions. IUD strings visible 2 cm UTERUS: normal size ADNEXA: negative for tenderness or masses IMPRESSION/PLAN: IUD correctly positioned.Discussed checking strings if desired. Follow up for annual exam or sooner if needed. Yanna Arenas APRN.CNP I spent a total of 20 minutes on the date of the service which included preparing to see the patient, [id number] patient care, completing clinical documentation, obtaining and/or reviewing separately obtained history, performing a medically appropriate examination, and counseling and educating the patient/family/caregiver. documented in this encounter [facility] 09-19-2022 Note HNO ID: [id number] Author: Yasmeen Hernandez MD Service: ? Author Type: Physician Type: Progress Notes Filed: 09/19/2022 4:13 PM Note Text: Substitute School Nurse offered: Patient declines. Jazz presents today for IUD insertion for contraception. Patient's last menstrual period was 09/15/2022 (within days). GC/chlamydia: Not done: no risk factors and/or patient declines screening test: negative Side effects including irregular bleeding were discussed with the patient. The patient understands that it should be removed in 8 years or sooner if the patient desires a . IUD source: office provided IUD lot #: [id number] Exp date: 09/2024 UNIVERSAL PROTOCOL / SAFETY CHECKLIST Procedure to be Performed: Mirena IUD Insertion Sign In: A Moment of CARE was completed. Personnel directly involved with the procedure wore the appropriate PPE (Personal Protective Equipment). Patient/Surrogate Stated/Verified: PATIENT VERIFIED(optional for EMERGENT procedures): Patient name, Date of , Relevant allergies, and The intended procedure Time Out Communication: Intended patient and procedure match the source documents. Consent documented and matches the intended procedure. Sign Out: SIGN OUT (optional for EMERGENT procedures): No specimen collected. The cervix was prepped with betadine. The uterus sounded to 8 cm and the uterus is Midposition.. Using sterile technique, the Mirena IUD was inserted without difficulty and the string was cut to 2cm from the external os of the cervix. Patient tolerated procedure well. PLAN: Patient was advised to observe for signs and symptoms of infection including but not limited to fever, malodorous vaginal discharge and/or pain. The patient was told to check the string monthly for accurate placement. Bleeding expectations were reviewed. Follow up in one month. Yasmeen Woodard MD [facility] 09-19-2022 History of Presen t illness Narrative Substitute School Nurse offered: Patient declines. Jazz presents today for IUD insertion for contraception. Patient's last menstrual period was 09/15/2022 (within days). GC/chlamydia: Not done: no risk factors and/or patient declines screening test: negative Side effects including irregular bleeding were discussed with the patient. The patient understands that it should be removed in 8 years or sooner if the patient desires a . IUD source: office provided IUD lot #: [id number] Exp date: 09/2024 UNIVERSAL PROTOCOL / SAFETY CHECKLIST Procedure to be Performed: Mirena IUD Insertion Sign In: A Moment of CARE was completed. Personnel directly involved with the procedure wore the appropriate PPE (Personal Protective Equipment). Patient/Surrogate Stated/Verified: PATIENT VERIFIED(optional for EMERGENT procedures): Patient name, Date of , Relevant allergies, and The intended procedure Time Out Communication: Intended patient and procedure match the source documents. Consent documented and matches the intended procedure. Sign Out: SIGN OUT (optional for EMERGENT procedures): No specimen collected. The cervix was prepped with betadine. The uterus sounded to 8 cm and the uterus is Midposition.. Using sterile technique, the Mirena IUD was inserted without difficulty and the string was cut to 2cm from the external os of the cervix. Patient tolerated procedure well. PLAN: Patient was advised to observe for signs and symptoms of infection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 Procedures RICKEY DIAGNOSTIC LT DIAGNOSTIC MAMMOGRAPHY COMPUTER-AIDED [facility]CJ [facility] Maricarmen Pérez APRN.CNM [address] [place] [address] [facility] [address] [place] [id number] Referral ID Status Reason Start Date Expiration Date Visits Requested Visits Authorized [id number] Authorized Auto-Generat ed Referral 03/10/2022 04/09/2023 1 1 * Diagnostic Procedure Only (Routine) - Pending Review Specialty Diagnoses / Procedures Referred By Contac t Referred To Contact [facility] Diagnoses Breast pain Procedures US BREAST LTD LT US BREAST UNI REAL TIME WITH IMAGE LIMITED Maricarmen Pérez APRN.CNM [address] [place] [address] [facility] [address] [place] [address] Referral ID Status Reason Start Date Expiration Date Visits Requested Visits Authorized [id number] Pending Review Auto-Generat ed Referral 03/10/2022 04/09/2023 1 1 [facility] for referral (narrative)* Outpatient Procedure (Routine) - Pending Review Specialty Diagnoses / Procedures Referred By Maame t Referred To Contact [facility] Diagnoses Encounter for initial prescription of intrauterine contraceptive device (IUD) Procedures INSERT INTRAUTERINE DEVICE LEVONORGESTREL IU 52MG 5 YR INSERT INTRAUTERINE DEVICE Yasmeen Esquivel MD [address] [place] [address] [facility] [address] [place] [address] Referral ID Status Reason Start Date Expiration Date Visits Requested Visits Authorized [id number] Pending Review Auto-Generat ed Referral 08/11/2022 08/11/2023 1 1 [facility] for referral (narrative)* Outpatient Procedure (Routine) - Pending Review Specialty Diagnoses / Procedures Referred By Maame t Referred To Contact [facility] Diagnoses Encounter for IUD insertion Procedures INSERT INTRAUTERINE DEVICE LEVONORGESTREL IU 52MG 5 YR INSERT INTRAUTERINE DEVICE Yasmeen Esquivel MD [address] [place] [address] [facility] [address] [place] [address] Referral ID Status Reason Start Date Expiration Date Visits Requested Visits Authorized [id number] Pending Review Auto-Generat ed Referral 09/19/2022 09/19/2023 1 1 [facility] Summary Purpose Family History No Family History Records FoundUnknown Family Member Name Dates Details No pertinent family history( V49.89, Z78.9) Comments:Multiple Family Mem bers Status:Active Mother Name Dates Details No pertinent family history( V49.89, Z78.9) Status:Active Advance Directives No Advanced Directives Records FoundDocuments on File Type Date Recorded Patient [employer] Expl anation Advance Directive(s) 11/30/2017 11:07 PM Medications Administered Section Inactive Administered Medications - up to 3 most recent administrations Medication Order MAR Action Action Date Dose Rate Site levonorgestrel 21 mcg/24 hours (8 yrs) 52 mg 1 Each intrauterine device (MIRENA) 1 Each, INTRAUTERINE, ONCE (UP TO 30 DAYS AMB), 1 dose, On Sun09/19/22 at 1600, Hazardous Potential Reproductive Risk Drug: Use appropriate PPE. Given 09/19/2022 4:18 PM EDT 1 Each Other Additional Source Comments INFORMATION SOURCE (unrecogn ized section and content) DATE CREATED AUTHOR AUTHOR'S ORGANIZ ATION 12/14/2017 [facility] DATE CREATED AUTHOR AUTHOR'S ORGANIZ ATION 12/14/2017 [facility] DATE CREATED AUTHOR AUTHOR'S ORGANIZ ATION 04/08/2023 [facility] DATE CREATED AUTHOR AUTHOR'S ORGANIZ ATION 07/11/2023 [facility] Source Comments (unrecognize d section and content) In the event this informatio n is protected by the Federal Confidentiality of Alcohol and Drug Abuse Patient Records regulations: The Federal rules restrict any use of the information to criminally investigate or prosecute any alcohol or drug abuse patient.[facility] event this information is protected by the Federal Confidentiality of Alcohol and Drug Abuse Patient Records regulations: The Federal rules restrict any use of the information to criminally investigate or prosecute any alcohol or drug abuse patient.[facility] the event this information is protected by the Federal Confidentiality of Alcohol and Drug Abuse Patient Records regulations: The Federal rules restrict any use of the information to criminally investigate or prosecute any alcohol or drug abuse patient.[facility] the event this information is protected by the Federal Confidentiality of Alcohol and Drug Abuse Patient Records regulations: The Federal rules restrict any use of the information to criminally investigate or prosecute any alcohol or drug abuse patient.[facility] the event this information is protected by the Federal Confidentiality of Alcohol and Drug Abuse Patient Records regulations: The Federal rules restrict any use of the information to criminally investigate or prosecute any alcohol or drug abuse patient.[facility] the event this information is protected by the Federal Confidentiality of Alcohol and Drug Abuse Patient Records regulations: The Federal rules restrict any use of the information to criminally investigate or prosecute any alcohol or drug abuse patient.[facility] the event this information is protected by the Federal Confidentiality of Alcohol and Drug Abuse Patient Records regulations: The Federal rules restrict any use of the information to criminally investigate or prosecute any alcohol or drug abuse patient.[facility] the event this information is protected by the Federal Confidentiality of Alcohol and Drug Abuse Patient Records regulations: The Federal rules restrict any use of the information to criminally investigate or prosecute any alcohol or drug abuse patient.[facility] the event this information is protected by the Federal Confidentiality of Alcohol and Drug Abuse Patient Records regulations: The Federal rules restrict any use of the information to criminally investigate or prosecute any alcohol or drug abuse patient.[facility] the event this information is protected by the Federal Confidentiality of Alcohol and Drug Abuse Patient Records regulations: The Federal rules restrict any use of the information to criminally investigate or prosecute any alcohol or drug abuse patient.[facility] the event this information is protected by the Federal Confidentiality of Alcohol and Drug Abuse Patient Records regulations: The Federal rules restrict any use of the information to criminally investigate or prosecute any alcohol or drug abuse patient.[facility] the event this information is protected by the Federal Confidentiality of Alcohol and Drug Abuse Patient Records regulations: The Federal rules restrict any use of the information to criminally investigate or prosecute any alcohol or drug abuse patient.[facility] Teams (unrecognized sec tion and content) Digital Production Artist Relationship Specialty Start Date End Date (Historical), [facility] Digital Production Artist Relationship Specialty Start Date End Date (Historical), [facility] 02/03/16 Digital Production Artist Relationship Specialty Start Date End Date (Historical), [facility] 02/03/16 Digital Production Artist Relationship Specialty Start Date End Date (Historical), [facility] 8/11/16 Digital Production Artist Relationship Specialty Start Date End Date (Historical), Nop 02/03/16 Digital Production Artist Relationship Specialty Start Date End Date (Historical), Nop 02/03/16 Digital Production Artist Relationship Specialty Start Date End Date (Historical), Nop 02/03/16 Digital Production Artist Relationship Specialty Start Date End Date (Historical), [facility] 02/03/16 Digital Production Artist Relationship Specialty Start Date End Date (Historical), Nop 02/03/16 Reason for Visit (unrecogniz ed section and content) Reason Comments Refill Request Reason Comments New Patient Evaluation Reason Comments Telemedicine Reason Comments Follow Up Reason Comments Med Change Request Reason Onset Date Comments Insertion Of IUD 09/19/2022 Specialty Diagnoses / Procedures Referred By Contmiquel t Referred To Contact [facility] Diagnoses Encounter for initial prescription of intrauterine contraceptive device (IUD) Procedures INSERT INTRAUTERINE DEVICE LEVONORGESTREL IU 52MG 5 YR INSERT INTRAUTERINE DEVICE Yasmeen Esquivel MD [address] [place] [address] [facility] [address] [place] [address] Referral ID Status Reason Start Date Expiration Date V isits Requested Visits Authorized [id number] Closed Auto-Generate d Referral 08/11/2022 08/11/2023 1 1 Reason Comments Follow Up IUD check FOR RECORDS PERTAINING TO PATIENTS WHO ARE OR HAVE BEEN ENROLLED IN A CHEMICAL DEPENDENCY/SUBSTANCEABUSE PROGRAM, SOME INFORMATION MAY BE OMITTED. This clinical summary was aggregated from multiple sources. Caution should be exercised in using it in the provision of clinical care. This summary normalizes information from multiple sources, and as a consequence, information in this document may materially change the coding, format and clinical context of patient data. In addition, data may be omitted in some cases. CLINICAL DECISIONS SHOULD BE BASED ON THE PRIMARY CLINICAL RECORDS. [facility] [employer] provides no warranty or guarantee of the accuracy or completeness of information in this document.
== END | disposition home or self-care (01) ==
LOC: LABSPEC 09:34
PROVIDERS: PCP Internal Medicine; Visit Provider Internal Medicine
DX: R05.9 Cough, unspecified (principal)
CPT/HCPCS: 87635

== ENCOUNTER 2024-06-19 09:48 | Emergency (ER) | payer OTHER, SELFPAY ==
[2024-06-19 09:48] VITALS: BP 129/85; PULSE 107; RESP 16; TEMP 37.2; O2SAT 98; BMI 25.1
--- NOTE | 2024-06-19 10:14 | CT_ITS ---
EXAM: CT ABDOMEN AND PELVIS WITH INTRAVENOUS CONTRAST CLINICAL INDICATION: appendicitis TECHNIQUE: Helically acquired images were obtained of the abdomen and pelvis with intravenous contrast. This CT exam was performed using one or more of the following dose reduction techniques: automated exposure control, adjustment of the mA and/or kV according to patient size, and/or use of iterative reconstruction technique. CONTRAST: IV 100mL Isovue-300 RADIATION DOSE: CTDIvol = 12.03 mGy, DLP = 585.48 mGy-cm COMPARISON: No relevant prior studies available. FINDINGS: LOWER THORAX: Unremarkable. Lung bases are clear. No cardiomegaly. No significant pericardial effusion. ABDOMEN: LIVER: Unremarkable. Homogeneous. No focal mass. GALLBLADDER AND BILE DUCTS: Unremarkable. No calcified gallstones. No gallbladder distention or wall edema. No intra- or extrahepatic biliary ductal dilation. PANCREAS: Unremarkable. No focal cystic or solid mass. SPLEEN: Unremarkable. Normal size without focal cystic or solid mass. ADRENALS: Unremarkable. No nodules. KIDNEYS AND URETERS: Unremarkable. Normal renal size and position. No hydronephrosis. STOMACH AND BOWEL: Fluid-filled distention of the small bowel without obstruction. No focal inflammatory change. PELVIS: APPENDIX: The appendix is visualized due to paucity of abdominal fat and the absence of contrast in the colon and small bowel. BLADDER: Unremarkable. REPRODUCTIVE: IUD device inside the anteverted uterus. No adnexal mass. ABDOMEN and PELVIS: INTRAPERITONEAL SPACE: Unremarkable. No ascites or other fluid collection. No free air. BONES/JOINTS: Unremarkable. No suspicious lytic or blastic abnormality. SOFT TISSUES: Unremarkable. No discrete abdominal or pelvic wall hernia. VASCULATURE: Unremarkable. Abdominal aorta is non-dilated. LYMPH NODES: Unremarkable. No enlarged lymph nodes. CT/Abdomen/Pelvis W IV Cont ONLY IMPRESSION: 1. Nonvisualization of the appendix due to paucity of the intra-abdominal fat, absence of contrast in the colon and small bowel. Repeat CT of the abdomen and pelvis with oral contrast and colorectal contrast will be more helpful. 2. Fluid-filled distention of the small bowel without obstruction. 3. No obvious acute abnormality in the abdomen and pelvis. Electronically Signed: Mayito Piper MD at 11:25 EST ,
--- NOTE | 2024-06-19 10:27 | ED.VIS.GI ---
HPI HPI - GI History of Present Illness Chief Complaint: Abd Pain Informant: patient and spouse/S.O. Narrative Narrative: 28-year-old female presenting to the emergency room with vomiting nausea and abdominal pain. Patient states she had a normal day yesterday. Her and her ate the same [place] food. She woke around 0230 hrs. belching with some discomfort but was able to get back to bed. She woke up again with vomiting and upper abdominal pain. She states now the pain seems to be more the lower abdomen with continued nausea and vomiting. She states she has not been feeling any abdominal discomfort with eating recently. She has not had any diarrhea. No fever. No recent URIs. She notes that she has not had any prior abdominal surgeries. She notes that she feels some radiation to her lower back [facility] Medical History Sore throat Vitamin deficiency Hx: UTI (urinary tract infection) Hx of fracture Anemia Allergies History of abnormal cervical Pap smear History of depression History of asthma Home Medications ?Medication ?Instructions ?Recorded ?Last Taken ?Type cetirizine 10 mg tablet 10 mg PO DAILY seasonal allergies 03/20/19 Unknown History acetaminophen 500 mg tablet 1,000 mg (2 x 500 mg) PO Q8H PRN 06/08/20 Unknown Rx PRN Pain Score 1-3 cholecalciferol (vitamin D3) 125 125 mcg PO DAILY 01/02/23 Unknown History mcg (5,000 unit) capsule levonorgestrel (Mirena) 1 device intrauterine ONCE 01/02/23 Unknown History elderberry fruit 460 mg-elderberry 1 cap PO DAILY 08/08/23 Unknown History flower 115 mg capsule dicyclomine 20 mg tablet 20 mg PO TID PRN abdominal pain 06/19/24 Unknown Rx #30 tabs ondansetron 4 mg disintegrating 4 mg PO Q6H PRN PRN Nausea #15 tabs 06/19/24 Unknown Rx tablet Allergy/AdvReac Type Severity Reaction Status Date / Time fluconazole (From Diflucan) Allergy Hives Verified 06/19/24 09:49 Family History Mother Depression Grandmother Heart disease Other Adopted Surgical History History of nasal surgery Social History household members: spouse and children current occupational status: employed current occupation: [employer] Smoking Status: Former smoker pack-years: 2 Electronic Cigarette Use: not used alcohol intake: current alcohol intake frequency: a few times a month details: once a week substance use type: does not use what type of physical activity do you participate in: walking frequency: 5-6 times per week do you feel safe at home: Yes ROS ROS ED Constitutional Constitutional ED: Denies chills, fever(s) or weight loss Eyes Eyes: Denies change in vision or diplopia ENT ENT ED: Denies ear pain, rhinorrhea or sore throat Cardiovascular Cardiovascular: Denies chest pain, orthopnea, palpitations or racing heartbeat Respiratory/Chest Respiratory/Chest: Denies cough, dyspnea or orthopnea Gastrointestinal Gastrointestinal: Reports abdominal pain, nausea and vomiting; Denies diarrhea Genitourinary Genitourinary ED: Denies dysuria, hematuria or urinary frequency Musculoskeletal Musculoskeletal: Reports back pain; Denies arthralgias, myalgias or neck pain Integumentary Denies abscess or rash Neurologic Neurologic: Denies headache(s) or weakness Psychiatric Psychiatric: Denies anxiety, depression, suicidal ideation or suicidal thoughts Endocrine Endocrinology: Denies polydipsia, polyphagia or polyuria Allergic/Immunologic Allergic/Immunologic ED: Denies mouth swelling, tongue swelling or urticaria EXAM Physical Exam Const Vital Signs: 06/19/24 09:48 06/19/24 11:48 Temperature 99 F Temperature Source Temporal Pulse Rate 107 H 98 Respiratory Rate 16 16 Blood Pressure 129/85 H 110/70 Blood Pressure Mean 99 83 Pulse Ox 98 99 Oxygen Delivery Method Room Air Positive well nourished and well developed General Appearance ED: well developed HEENT Reports normocephalic, head/scalp atraumatic and moist mucous membranes Eyes PERRL and EOMs intact bilaterally Neck no lymphadenopathy, supple and no JVD Resp normal respiratory effort and clear to auscultation bilaterally Cardio regular rate, regular rhythm and no murmurs GI Inspection: Negative for abdominal distention Auscultation: normoactive bowel sounds Palpation: soft and tender RLQ and suprapubic; Negative for guarding or rebound tenderness present Back/Spine no CVA tenderness and normal ROM Extremity normal to inspection General Extremety ED: Negative for edema General Extremity: Negative for edema Neuro oriented x3 and CN's II-XII intact bilaterally Sensorium / Orientation: alert Motor Exam: strength 5/5 throughout Psych mental status grossly normal Mood & Affect: Negative for depressed or tearful Skin no rashes or lesions noted and no wounds MDM MDM MDM Narrative Medical decision making narrative: Differential diagnosis includes but not limited to pancreatitis cholecystitis appendicitis colitis ovarian cyst UTI kidney stone gastroenteritis Patient's white count is elevated 19.1 with 88.0 neutrophils. Hemoglobin 15.9 LFTs within normal limits lipase 45 BMP within normal limits urinalysis 1+ bacteria 5-10 squamous cells however 0-5 white cells 0-5 red cells negative nitrates. Patient received morphine and Zofran. She continued to have pain in her back and later received Toradol and Bentyl. This improved her symptomology. CT abdomen pelvis was obtained with IV contrast. There is nonvisualization of the appendix due to a paucity of intra-abdominal fat. However there is a large amount of fluid-filled small intestine and large intestine. I suspect the patient most likely has a viral gastroenteritis. Repeat examination does not find any localizing pain on the right side of the abdomen. We talked about whether or not this could be appendicitis and would not to repeat the CT with oral and rectal contrast. This point however given the above findings and her history I think is most likely to be viral in nature. Patient understands return instructions I will be writing for Bentyl and Zofran. Return if worsening or concerns History & Record Review Discussion w/independent historian: Patient and Significant other Lab Data Attestation: I reviewed the patient's lab results. Labs: Laboratory Results - last 24 hr 06/19/24 10:00 WBC 19.1 H RBC 5.62 H Hgb 15.9 H Hct 48.4 H MCV 86.1 MCH 28.3 MCHC 32.9 RDW Std Deviation 41.8 RDW Coeff of Dominique 13.3 Plt Count 420 MPV 10.5 Immature Gran % (Auto) 0.400 Neut % (Auto) 88.0 H Lymph % (Auto) 5.3 L [place] % (Auto) 5.4 Eos % (Auto) 0.6 Baso % (Auto) 0.3 Absolute Neuts (auto) 16.8 H Absolute Lymphs (auto) 1.01 Nucleated RBC % 0 Sodium 136 Potassium 3.8 Chloride 106 Carbon Dioxide 23.0 Anion Gap 7 BUN 13 Creatinine 0.94 Estim Creat Clear Calc 85.87 Est GFR (MDRD) Af Amer 90 Est GFR (MDRD) Non-Af 75 BUN/Creatinine Ratio 13.8 Glucose 100 Calcium 9.7 Total Bilirubin 0.70 Direct Bilirubin 0.20 AST 14 L ALT 22 Alkaline Phosphatase 75 Total Protein 8.3 H Albumin 4.2 Globulin 4.1 Lipase 45 Serum , Qual NEGATIVE Urine Color Yellow Urine Clarity Sl. Cloudy Urine pH 8.0 Ur Specific [place] 1.010 Urine Protein 15 H Urine Glucose (UA) Normal Urine Ketones 5 H Urine Occult Blood 10 H Urine Nitrite Negative Urine Bilirubin Negative Urine Urobilinogen Normal Ur Leukocyte Esterase 25 H Urine RBC 0-5 SEEN Urine WBC 0-5 SEEN Ur Squamous Epith Cells 5-10 SEEN Urine Bacteria 1+ Urine Mucus 0 SEEN Radiography Diagnostic Testing: Clinical Impression(s) from Imaging Studies Abdomen/Pelvis CT 06/19/24 10:14 IMPRESSION: 1. Nonvisualization of the appendix due to paucity of the intra-abdominal fat, absence of contrast in the colon and small bowel. Repeat CT of the abdomen and pelvis with oral contrast and colorectal contrast will be more helpful. 2. Fluid-filled distention of the small bowel without obstruction. 3. No obvious acute abnormality in the abdomen and pelvis. Electronically Signed: Mayito Piper MD at 11:25 EST Reading Location ID and State: [address] [place] [address] , Service support , Discharge Plan Triage Chief Complaint: Abd Pain ED Provider: Chidi Black Dx/Rx/DC Orders Clinical Impression: Abdominal pain, Leukocytosis, Vomiting, Back pain Instructions: Viral Gastroenteritis Prescriptions: New dicyclomine 20 mg tablet 20 mg PO TID PRN (Reason: abdominal pain) Qty: 30 0RF ondansetron 4 mg tablet,disintegrating 4 mg PO Q6H PRN PRN (Reason: Nausea) Qty: 15 0RF No Action cholecalciferol (vitamin D3) 125 mcg (5,000 unit) capsule 125 mcg PO DAILY Mirena 21 mcg/24 hours (8 yrs) 52 mg intrauterine device 1 device intrauterine ONCE Rx Instructions: as a single dose elderberry fruit and flower 460-115 mg capsule 1 cap PO DAILY cetirizine 10 MG tablet 10 mg PO DAILY acetaminophen 500 MG tablet 1,000 mg PO Q8H PRN PRN (Reason: Pain Score 1-3) 0RF Primary Care Provider: Daisy Higginbotham Referrals: Daisy Higginbotham MD [Primary Care Provider] - As Needed Activity Restrictions/Additional Instructions: As we discussed we could not visualize your appendix on the CT today. However given your symptomology and from what I see on the CT it would be very likely that you do develop diarrhea today. I would recommend Imodium as needed for diarrhea, Zofran for vomiting, Bentyl for abdominal pain. Please monitor your symptoms for changes. If you feel like the pain is localizing in the certain area of the abdomen particular the right lower I would recommend returning to emergency. If you have any concerns please come back and let us take a look at she would repeat the exam Print Language: Kazakh Disposition Disposition: Home, Self Care
[2024-06-19] MEDS: Morphine 4 MG/ML Syringe IV (10:35)
[2024-06-19] MEDS: Ondansetron 4 MG/2 ML Vial IV (10:35)
[2024-06-19 10:39] LABS: Internal QC Validated? YES +Cl - CLEAR BKGD; Pregnancy, Serum, hCG Quali. NEGATIVE Negative
[2024-06-19 10:41] LABS: Absolute Lymphocyte Count 1.01 X10^3/uL (0.83-4.51); Absolute Neutrophil Count 16.8 X10^3/uL (2.0-7.7); Basophil# 0.05 X10^3/uL; Basophil% 0.3 % (0-1); Eosinophil# 0.11 X10^3/uL; Eosinophils% 0.6 % (0-5); Hematocrit 48.4 % (37-47); Hemoglobin 15.9 g/dL (12.0-15.0); Lymphocyte # 1.01 X10^3/ul (0.83-4.51); Lymphocyte % 5.3 % (19-41); Mean Corp Hgb Conc 32.9 g/dL (32-36); Mean Corpuscular Hgb 28.3 pg (27.0-32.0); Mean Corpuscular Volume 86.1 fL (81-99); Mean Platelet Vol. 10.5 fl (6.2-12.0); Monocyte# 1.03 X10^3/uL; Monocyte% 5.4 % (0-10); NRBC Flagged by Analyzer 0 % (0-5); Neutrophil # 16.79 X10^3/uL (2.7-7.7); Platelet Count 420 K/mm3 (150-450); RBC Distribution Width CV 13.3 % (11.6-14.6); RBC Distribution Width SD 41.8 fl (35.1-43.9); Red Blood Count 5.62 M/mm3 (4.2-5.4); White Blood Count 19.1 K/mm3 (4.4-11.0)
[2024-06-19 10:48] LABS: AST(SGOT) 14 U/L (15-37); Alanine Aminotransfer ALT/SGPT 22 U/L (13-56); Albumin, Serum 4.2 g/dL (3.2-5.0); Alkaline Phosphatase 75 U/L (45-117); Anion Gap 7 (5-15); BUN 13 mg/dL (7-18); BUN/Creat Ratio 13.8 RATIO (10-20); Calcium,Total 9.7 mg/dL (8.5-10.1); Chloride 106 mmol/L (98-107); Creatinine, Serum 0.94 mg/dL (0.55-1.02); EST Glomerular Filtration Rate 75 mL/min (>60); Est Glom Filt Rate - Afr Amer 90 mL/min (>60); Estimated Creatinine Clearance 85.87 ml/min; Globulin 4.1 g/dL (2.2-4.2); Glucose 100 mg/dL (74-106); Lipase 45 U/L (13-75); Potassium 3.8 mmol/L (3.5-5.1); Protein, Total 8.3 g/dL (6.4-8.2); Sodium Level 136 mmol/L (136-145)
[2024-06-19 11:05] LABS: Mucous, Urine 0 SEEN /hpf (<or=2+)
[2024-06-19 11:15] LABS: Color, Urine Yellow (Yellow); Glucose, Dipstick Normal (Normal); Ketone-Dipstick 5 mg/dl (Negative); Leukocyte Esterase-Dipstick 25 /ul (Negative); Nitrite-Dipstick Negative (Negative); Occult Blood-Urine 10 /ul (Negative); Protein-Dipstick 15 mg/dl (Negative); Urine Bilirubin Dipstick Negative (Negative); Urine Clarity Sl. Cloudy (Clear); Urine Urobilinogen Normal (Normal)
[2024-06-19 11:21] LABS: Bacteria 1+ /hpf (None Seen); Red Blood Cells-Urine 0-5 SEEN /hpf (0-5); Squamous Epithelial Cells - UA 5-10 SEEN /hpf (5-10); White Blood Cells 0-5 SEEN /hpf (0-5)
[2024-06-19 11:48] VITALS: BP 110/70; PULSE 98; RESP 16; O2SAT 99
[2024-06-19] MEDS: Dicyclomine 20 MG/2 ML Vial IM (12:13)
[2024-06-19] MEDS: Ketorolac 30 MG/ML Syringe IV (12:13)
[2024-06-19 12:59] VITALS: BP 107/80; PULSE 84; RESP 16; TEMP 37.2; O2SAT 99
== END 2024-06-19 13:00 | disposition home or self-care (01) ==
PROVIDERS: Emergency Provider Emergency Medicine; PCP Internal Medicine; Visit Provider Emergency Medicine
DX: R10.10 Upper abdominal pain, unspecified (principal); M54.9 Dorsalgia, unspecified; Z87.891 Personal history of nicotine dependence; D72.829 Elevated white blood cell count, unspecified; R11.10 Vomiting, unspecified
CPT/HCPCS: 74177; 80048; 80076; 81001; 83690; 84703; 85025; 96372; 96374; 96375; 99283; Q9967; A4216; J2405

== ENCOUNTER 2025-01-02 16:02 | Emergency (ER) | payer OTHER, SELFPAY ==
[2025-01-02 16:03] VITALS: BP 123/82; PULSE 85; RESP 19; TEMP 36.6; O2SAT 100; BMI 25.8
--- NOTE | 2025-01-02 16:57 | CT_ITS ---
PROCEDURE: BRAIN/HEAD WITHOUT CONTRAST 01/02/2025 REASON FOR EXAM: HEADACHE TECHNIQUE: BRAIN/HEAD WITHOUT CONTRAST Coronal and Sagittal reconstruction series were provided. One or more dose reduction techniques were used (e.g., Automated exposure control, adjustment of the mA and/or kV according to patient size, use of iterative reconstruction technique. RADIATION DOSE SUMMARY: CTDlvol: 44.99 mGy DLP: 745.49 mGycm COMPARISON: None FINDINGS: Ventricles are normal in size and midline in position. No evidence of acute hemorrhage or infarction. No extra-axial blood or fluid collections. The paranasal sinuses and mastoid air cells are clear. The calvarial vault and skull base are intact. CT/Brain/Head without Contrast IMPRESSION: No acute intracranial abnormality. Reading Location: [place] [address]
--- NOTE | 2025-01-02 16:59 | EDS_ITS ---
HPI <HOLLIS Trinh - Last Filed: 01/02/25 20:21> History of Present Illness Chief Complaint: Headache Narrative Narrative: 29-year-old female presents with a headache. She states she had her IUD removed on October 22. On December 22 she had a heavy menstrual cycle lasting 7 days. On December 24 she started getting daily headaches?in the morning she would have a dull headache behind the right eye that gradually worsened throughout the day and then spread to both temples and the upper jaw. She had nausea without vomiting and light sensitivity. It did not improve with [id number] pain relievers. She states the headache was severe on December 28 and when she would stand she felt like she was drunk and off balance which would last a couple seconds. She has not had this feeling since then but still has persistent headaches. [facility] and was advised to go to the ED. She had an [facility] follow-up appointment this afternoon and they also recommended she come in. She denies a history of headaches or migraines. She takes no other medications. She has had no fever, chills, upper respiratory symptoms, or neck pain. [facility] <HOLLIS Trinh - Last Filed: 01/02/25 20:21> [facility] Medical History Sore throat Vitamin deficiency Hx: UTI (urinary tract infection) Hx of fracture Anemia Allergies History of abnormal cervical Pap smear History of depression History of asthma Home Medications ?Medication ?Instructions ?Recorded ?Last Taken ?Type cetirizine 10 mg tablet 10 mg PO DAILY seasonal chad rgies 03/20/19 Unknown History acetaminophen 500 mg tablet 1,000 mg (2 x 500 mg) PO Q 8H PRN 06/08/20 Unknown Rx PRN Pain Score 1-3 cholecalciferol (vitamin D3) 125 125 mcg PO DAILY 12/23 07/17 Unknown History mcg (5,000 unit) capsule levonorgestrel (Mirena) 1 device intrauterine ONCE 0 01/02/23 Unknown History elderberry fruit 460 mg-elderberry 1 cap PO DAILY 07/26 10/16 Unknown History flower 115 mg capsule dicyclomine 20 mg tablet 20 mg PO TID PRN abdominal p ain 06/19/24 Unknown Rx #30 tabs ondansetron 4 mg disintegrating 4 mg PO Q6H PRN PRN Na usea #15 tabs 06/19/24 Unknown Rx tablet Allergy/AdvReac Type Severity Reaction Status Date / Time fluconazole (From Diflucan) Allergy Hives Verified 01/02/25 16:04 Family History Mother Depression Grandmother Heart disease Other Adopted Surgical History History of nasal surgery Social History household members: spouse and children current occupational status: employed current occupation: [employer] Smoking Status: Former smoker pack-years: 2 Electronic Cigarette Use: not used alcohol intake: current alcohol intake frequency: a few times a month details: once a week substance use type: does not use what type of physical activity do you participate in: walking frequency: 5-6 times per week do you feel safe at home: Yes ROS <HOLLIS Trinh - Last Filed: 01/02/25 20:21> ROS ED ROS Narrative Constitutional: Negative for fever, chills, malaise. Eyes: Negative for visual change. CVS: Negative for chest pain. Respiratory: Negative for shortness of breath. GI: Positive for nausea. No vomiting. Neuro: Positive for headache, negative for motor/sensory dysfunction. EXAM <HOLLIS Trinh - Last Filed: 01/02/25 20:21> Physical Exam Narrative Exam Narrative: CONST: Patient sitting in no acute distress. EYES: Normal inspection. PERRL, EOMI, no nystagmus. ENT: Normal inspection, moist mucous membranes. NECK: Normal inspection. No meningismus. RESP: No respiratory distress, CTAB. CVS: Regular rate and rhythm, no murmur, no gallop. SKIN: Color normal, no rash, warm, dry, intact. EXTREMITIES: Normal appearance, no pedal edema. NEURO: Alert and answering questions appropriately. 5/5 upper and lower extremity strength. No drift. Normal finger-nose and heel calderon bilaterally. Normal gait. PSYCH: Normal affect. Const Vital Signs: 01/02/25 16:03 01/02/25 18:02 01/02/25 19:00 Temperature 98 F 98.2 F Temperature Source Oral Pulse Rate 85 85 75 Respiratory Rate 19 H 15 16 Blood Pressure 123/82 H 122/79 H 112/65 Blood Pressure Mean 95 93 80 Pulse Ox 100 99 100 Oxygen Delivery Method Room Air <Dr. Dion Aaron, - Last Filed: 01/02/25 21:56> Physical Exam Const Vital Signs: 01/02/25 16:03 01/02/25 18:02 01/02/25 19:00 Temperature 98 F 98.2 F Temperature Source Oral Pulse Rate 85 85 75 Respiratory Rate 19 H 15 16 Blood Pressure 123/82 H 122/79 H 112/65 Blood Pressure Mean 95 93 80 Pulse Ox 100 99 100 Oxygen Delivery Method Room Air MDM <HOLLIS Trinh - Last Filed: 01/02/25 20:21> [facility] Narrative Medical decision making narrative: Differential includes but not limited to tension headache, migraine, intracranial mass, hemorrhage 29-year-old female presents with a bifrontal headache x 9 days. It started gradually morning and worsened throughout the day. She has nausea without vomiting. On 1 day she really describes vertiginous symptoms with that but that has since resolved. She is awake alert no distress. Vital stable. She has a normal neurological exam. She has no signs of meningitis and no systemic symptoms to suggest illness. CT brain is negative. After IV migraine cocktail of fluids, Toradol, Compazine and Benadryl her headache has completely resolved but she had a dystonic reaction where she felt like she was itching out of her skin. This resolved with Cogentin. She was discharged with instructions to follow-up with her primary care doctor if headaches continue. Return precautions discussed. She was discharged in stable condition. Radiography Diagnostic Testing: Clinical Impression(s) from Imaging Studies Brain CT 01/02/25 16:57 IMPRESSION: No acute intracranial abnormality. Reading Location: [id number] <Dr. Dion Aaron, DO - Last Filed: 01/02/25 21:56> [place] Radiography Diagnostic Testing: Clinical Impression(s) from Imaging Studies Brain CT 01/02/25 16:57 IMPRESSION: No acute intracranial abnormality. Reading Location: [id number] Treatment and Re-Evaluation :: I have personally performed a face to face assessment of the patient and have reviewed the ELIEZER Note. I performed a substantive portion of the visit including all aspects of the following. My alejandro findings include: History: Patient presents with a headache that has been constant for the past 10 days. Patient states he began with a sudden. Patient states it is constant. Patient describes it as sharp and tight across the front of her head. Patient states he goes to the temporal areas. Patient states he goes into work TMJ area. Patient states she took some Excedrin initially which helped. Patient states this no longer helps. Patient admits to some nausea. Patient admits to some intermittent scotoma. Patient also admits to some photophobia. Patient denies any paresthesias or weakness. Patient denies any fevers or chills. Patient denies any vomiting. Exam: Vital signs are stable. Patient is afebrile. Patient is in no acute distress. Cranial nerves II through XII are intact. There are no focal motor or sensory deficits noted. Is 5/5 bilaterally in the upper and lower extremities. There are no sensory deficits noted. Heart was regular rate and rhythm. Lungs are clear and equal bilaterally. Abdomen is soft. Bowel sounds are normal. There is no tenderness. Medical Decision Making: Differential diagnosis includes intracranial bleeding, tension headache, migraine headache, and dehydration. CT scan of the brain will be obtained to assess for intracranial bleeding and mass. Patient was given IV fluids. Patient was given dose of Compazine, Benadryl, and Toradol. Patient was feeling anxious and jittery after the Compazine injection. Because of this, patient was given an injection of Cogentin. Patient states her headache was better. Patient was instructed to rest in a dark quiet room. Patient was instructed to follow-up with her primary care physician in 5 to 7 days. Patient understood and was agreeable with the plan. All questions were answered Discharge Plan Triage Chief Complaint: Headache ED Midlevel Provider: Kandy Andrade ED Provider: Dion Aaron Dx/Rx/DC Orders Clinical Impression: Headache Instructions: Understanding Headache Pain Prescriptions: No Action cholecalciferol (vitamin D3) 125 mcg (5,000 unit) capsule 125 mcg PO DAILY Mirena 21 mcg/24 hours (8 yrs) 52 mg intrauterine device 1 device intrauterine ONCE Rx Instructions: as a single dose elderberry fruit and flower 460-115 mg capsule 1 cap PO DAILY cetirizine 10 MG tablet 10 mg PO DAILY acetaminophen 500 MG tablet 1,000 mg PO Q8H PRN PRN (Reason: Pain Score 1-3) 0RF dicyclomine 20 mg tablet 20 mg PO TID PRN (Reason: abdominal pain) Qty: 30 0RF ondansetron 4 mg tablet,disintegrating 4 mg PO Q6H PRN PRN (Reason: Nausea) Qty: 15 0RF Primary Care Provider: Daisy Higginbotham Referrals: Daisy Higginbotham MD [Primary Care Provider] - Activity Restrictions/Additional Instructions: You can alternate Tylenol and ibuprofen every 3 hours as needed. I recommend following up with your primary care doctor if headaches continue. Print Language: Czech Disposition Disposition: Home, Self Care Discharge Date/Time: 01/02/25 19:10
[2025-01-02] MEDS: DiphenhydrAMINE 50 MG/ML Syringe 25 MG IV (17:41)
[2025-01-02] MEDS: 0.9% Normal Saline (1000mL) 1,000 ML 999 ML IV (17:45)
[2025-01-02 18:02] VITALS: BP 122/79; PULSE 85; RESP 15; O2SAT 99
[2025-01-02 19:00] VITALS: BP 112/65; PULSE 75; RESP 16; TEMP 36.8; O2SAT 100
== END 2025-01-02 19:10 | disposition home or self-care (01) ==
PROVIDERS: Emergency Provider Emergency Medicine; PCP Internal Medicine; Visit Provider Emergency Medicine
DX: R51.9 Headache, unspecified (principal); Z87.891 Personal history of nicotine dependence; G24.1 Genetic torsion dystonia
CPT/HCPCS: 70450; 96361; 96374; 96375; 99283; A4216